=== PATIENT | male | born 1950 | race Caucasian/White ===

== ENCOUNTER 2024-07-04 08:52 | Day surgery (SDC) | payer MEDICARE, MEDICAID, SELFPAY ==
[2024-06-30 11:54] VITALS: BMI 16.2
[2024-07-04] VITALS (9 sets, daily range): BP systolic 123–149; BP diastolic 73–88; PULSE 66–88; RESP 16–20; TEMP 36.3–36.6; O2SAT 96–100
[2024-07-04] MEDS: PHENYLEPHRINE 2.5% OPHTH SOLN 2ML OP ×3 (09:50→10:00)
[2024-07-04] MEDS: CYCLOPENTOLATE 2% OPHTH SOLN 2ML BOTTLE OP ×3 (09:50→10:00)
[2024-07-04] MEDS: TETRACAINE 0.5% OPTH SOL 15ML OP ×3 (09:50→10:00)
[2024-07-04] MEDS: MIDAZOLAM 2MG/2ML VIAL 1 MG IV (10:31)
[2024-07-04] MEDS: TIMOLOL 0.5% OPTH SOLN 5ML OP (10:42)
[2024-07-04] MEDS: TOBRAMYCIN/DEX OPTH SUSP 2.5ML OP (10:42)
[2024-07-04] MEDS: LIDOCAINE 1% PF 2ML AMPULE 2 ML IJ (10:43)
[2024-07-04] MEDS: SODIUM CHLORIDE 0.9% 10ML FLUSH SYRINGE 10 ML IV (10:44)
--- NOTE | 2024-07-04 12:47 | P.PCN_ITS ---
[facility] Procedure Note Date: 07/04/24 Time: 12:47 Procedure Note:: cat.
--- NOTE | 2024-07-04 12:47 | HMH.PROCNOTE ---
[facility] Procedure Note Date: 07/04/24 Time: 12:47 Procedure Note:: cat.
--- NOTE | 2024-07-04 12:50 | P.PCN_ITS ---
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 The patient reports that this interferes with ADLs such as reading, watching TV and/or driving or the vision is like looking through a foggy haze and is very troubling. The patient was examined and found to have a visually significant cataract with best corrected vision of [20/400] by refraction and/or glare testing. Treatment options, risks and benefits were explained and the patient elected to have cataract surgery in an attempt to improve their vision. The patient had the eye anesthetized with topical tetracaine, the eye ways prepped and draped in the usual fashion for cataract surgery. A paracentesis and a temporal keratotomy were made. 0.2cc of 1% lidocaine PF was placed into the anterior chamber. And aqueous/viscoelastic exchange was done and a 360 degree capsulorexis was performed. Through hydrodissection and delineation with BSS on a cannula was done. The lens nucleus was phecoemulsified with CDE of [12.64]. During the case , the pupil decresed in size to 3 mm making visualization dificult. A malyugin ring was placed to expand the pupil and improve visualization and decrease the risk of complications. Residual cortical material was removed using automated I&A The capsular bag was deepened with viscoelastica and a PCIOL was placed in the capsular bag with good centration a nd stability. Residual viscoelastic was removed using automated I&A. The malyugin ring was removed. The keratotomy incision was hydrated with BSS on a cannula. The wound were checked and found to be water tight. IOP was checked digitally and adjusted as needed so as not to be too high. 1 drop of timolol 0.5%, ofloxacin, prednisolone acetate and ketorolac was instilled and eye shield taped over the eye. The patient was taken to recovery in good condition and will be seen postoperatively.
== END 2024-07-04 11:40 | disposition home or self-care (01) ==
PROVIDERS: PCP Family Medicine; Visit Provider Ophthalmology
DX: H25.812 Combined forms of age-related cataract, left eye (principal); H02.836 Dermatochalasis of left eye, unspecified eyelid; H02.833 Dermatochalasis of right eye, unspecified eyelid; F17.210 Nicotine dependence, cigarettes, uncomplicated; Z79.899 Other long term (current) drug therapy
CPT/HCPCS: 66984; J2250; V2632

== ENCOUNTER 2024-07-18 08:36 | Day surgery (SDC) | payer MEDICARE, MEDICAID, SELFPAY ==
[2024-07-18] VITALS (13 sets, daily range): BP systolic 115–142; BP diastolic 62–80; PULSE 55–71; RESP 16–18; TEMP 36.2–36.4; O2SAT 92–98
[2024-07-18] MEDS: MIDAZOLAM 2MG/2ML VIAL 1 MG IV (10:22)
[2024-07-18] MEDS: TIMOLOL 0.5% OPTH SOLN 5ML OP (11:01)
[2024-07-18] MEDS: TOBRAMYCIN/DEX OPTH SUSP 2.5ML OP (11:01)
[2024-07-18] MEDS: LIDOCAINE 1% PF 2ML AMPULE 2 ML IJ (11:01)
[2024-07-18] MEDS: SODIUM CHLORIDE 0.9% 10ML FLUSH SYRINGE 10 ML IV (11:01)
--- NOTE | 2024-07-18 13:24 | HMH.PROCNOTE ---
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 The patient reports that this interferes with ADLs such as reading, watching TV and/or driving or the vision is like looking through a foggy haze and is very troubling. The patient was examined and found to have a visually significant cataract with best corrected vision of [20/400] by refraction and/or glare testing. Treatment options, risks and benefits were explained and the patient elected to have cataract surgery in an attempt to improve their vision. The patient had the eye anesthetized with topical tetracaine, the eye ways prepped and draped in the usual fashion for cataract surgery. A paracentesis and a temporal keratotomy were made. 0.2cc of 1% lidocaine PF was placed into the anterior chamber. And aqueous/viscoelastic exchange was done and a 360 degree capsulorexis was performed. Through hydrodissection and delineation with BSS on a cannula was done. The lens nucleus was phecoemulsified with CDE of [10.36]. Residual cortical material was removed using automated I&A The capsular bag was deepened with viscoelastica and a PCIOL was placed in the capsular bag with good centration and stability. Residual viscoelastic was removed using automated I&A. The keratotomy incision was hydrated with BSS on a cannula. The wound were checked and found to be water tight. IOP was checked digitally and adjusted as needed so as not to be too high. 1 drop of timolol 0.5%, ofloxacin, prednisolone acetate and ketorolac was instilled and eye shield taped over the eye. The patient was taken to recovery in good condition and will be seen postoperatively.
== END 2024-07-18 11:26 | disposition home or self-care (01) ==
PROVIDERS: PCP Family Medicine; Visit Provider Ophthalmology
PROC: (CPT 66984; principal; 2024-07-18 11:00)
DX: H25.812 Combined forms of age-related cataract, left eye (principal); F17.200 Nicotine dependence, unspecified, uncomplicated; Z97.3 Presence of spectacles and contact lenses; Z96.1 Presence of intraocular lens; Z79.899 Other long term (current) drug therapy; Z98.41 Cataract extraction status, right eye
CPT/HCPCS: 66984; J2250; V2632